=== PATIENT | female | born 1975 | race Caucasian/White ===

== ENCOUNTER 2024-06-18 21:46 | Emergency (ER) | payer OTHER ==
[2024-06-18 22:11] VITALS: RESP 18; BMI 27.4
[2024-06-18] MEDS ORDERED: ONDANSETRON 4 MG/2 ML VIAL ONE ×2 (22:28→22:48)
[2024-06-18] MEDS ORDERED: ACETAMINOPHEN INJECTION 100 ML ONE (22:28)
[2024-06-18 22:41] LABS: ABSOLUTE IMMATURE GRANULOCYTES 0.01 x10^3/uL (0.0-0.031); BASOPHILS # 0.04 x10^3/uL (0.01-0.08); EOSINOPHIL % 0.3 % (0.7-5.8); EOSINOPHILS # 0.04 x10^3/uL (0.04-0.36); HEMATOCRIT 38.2 % (34.1-44.9); HEMOGLOBIN 12.6 g/dL (11.2-15.7); MEAN PLT VOLUME 10.6 fl (9.4-12.3); MONOCYTE # 1.04 x10^3/uL (0.24-0.86); MONOCYTE % 8.5 % (4.7-12.5); PLATELET COUNT 328 x10^3/uL (182-369); RDW 13.5 % (12.2-17.1)
[2024-06-18] MEDS: SODIUM CHLORIDE 1,000 ML IV ONE (22:46)
[2024-06-18 22:47] LABS: ALBUMIN 4.4 g/dl (3.4-5.0); BILIRUBIN,TOTAL 0.9 mg/dl (0.2-1); CALCIUM 9.4 mg/dl (8.5-10.1); CREATININE 0.8 mg/dl (0.6-1.3); MAGNESIUM 2.1 mg/dL (1.8-2.4); TOT PROT 7.2 g/dl (6.4-8.2)
[2024-06-18] MEDS: ACETAMINOPHEN 1000 MG/100 ML BAG IVPB ONE (22:47)
[2024-06-18] MEDS: ONDANSETRON 4 MG/2 ML VIAL IVPB ONE (23:01)
[2024-06-19 09:19] VITALS: BP 129/86; PULSE 79; TEMP 98.4
== END 2024-06-19 09:36 | disposition home or self-care (01) ==
LOC: FER 21:46
PROC: 3E033NZ Introduction of Analgesics, Hypnotics, Sedatives into Peripheral Vein, Percutaneous Approach (ICD-10-PCS; principal; 2024-06-18)
PROC: 3E033GC Introduction of Other Therapeutic Substance into Peripheral Vein, Percutaneous Approach (ICD-10-PCS; 2024-06-18)
PROC: 3E0337Z Introduction of Electrolytic and Water Balance Substance into Peripheral Vein, Percutaneous Approach (ICD-10-PCS; 2024-06-18)
DX: R10.13 Epigastric pain (principal); R11.10 Vomiting, unspecified
CPT/HCPCS: 36415; 74019-TC-FY; 74177-TC; 80053; 81025; 83735; 85025; 93005; 99285-25; J0131